=== PATIENT | male | born 1995 | race Two or more races ===

== ENCOUNTER 2021-09-19 15:13 | Emergency (ER) | payer OTHER ==
[~2021-09-19] VITALS: Ht 170.2 cm; Wt 83.9 kg
--- NOTE | 2021-09-19 15:13 | NUR ---
PT BIB SELF C/O SOB AND BODY PAIN FOR 4 DAYS. PT IS AAOX4, NOT IN RESPIRAOTRY DISTRESS, V/S STABLE, KEPT RESTED AND COMFORTABLE. WILL CONTINUE TO MONITOR.
--- NOTE | 2021-09-19 15:45 | NUR ---
CALLED TO TRIAGE,NO ANSWER
[2021-09-19] MEDS ORDERED: IV NS 0.9% 1,000 ML BAG IV ONE (17:00)
[2021-09-19] MEDS ORDERED: ACETAMINOPHEN ES 500 MG TABLET PO ONE (17:00)
[2021-09-19] MEDS ORDERED: ACETAMINOPHEN ES 500 MG TABLET ONE (17:15)
--- NOTE | 2021-09-19 17:15 | NUR ---
IV LINE ESTABLISHED BLOOD DRAWN AND SENT TO LAB.
[2021-09-19] MEDS ORDERED: IBUP-1955 PO (18:21)
[2021-09-19] MEDS ORDERED: GUAI1TBM19 PO (18:21)
[2021-09-19 18:31] VITALS: BP 127/72
--- NOTE | 2021-09-19 18:31 | NUR ---
Patient discharged to home in stable condition. Written and verbal after care instructions given. Patient verbalizes understanding of instruction.IV removed. Catheter intact and site benign. Pressure and 4x4 applied to site. No bleeding noted.
== END 2021-09-19 18:32 | disposition home or self-care (01) ==
LOC: ER 17:41
DX: J06.9 Acute upper respiratory infection, unspecified (principal); Z20.822 Contact with and (suspected) exposure to COVID-19
CPT/HCPCS: 71045; 87426; 87804; 96360; 99284; C9803 ×2; J7030; U0003